=== PATIENT | female | born 1975 | race Caucasian/White ===

== ENCOUNTER → 2021-12-25 | Outpatient (REF) | payer OTHER ==
[2021-12-25 14:11] LABS: BASO # 0.1 10^3/uL (0.0-0.2); BASO % 0.7 % (0.0-1.0); EOS # 0.2 10^3/uL (0.0-0.5); EOS % 2.2 % (0.0-3.0); HEMATOCRIT 41.8 % (36.0-47.0); HEMOGLOBIN 14.5 g/dl (12.0-15.5); LYMPH # 2.2 10^3/uL (1.5-5.0); LYMPH % 21.6 % (24.0-44.0); MEAN CORPUSCULAR HEMOGLOBIN 31.4 pg (27.0-33.0); MEAN CORPUSCULAR HGB CONC 34.7 g/dl (32.0-36.5); MEAN CORPUSCULAR VOLUME 90.5 fl (80.0-96.0); MONO # 0.8 10^3/uL (0.0-0.8); MONO % 7.8 % (2.0-8.0); NEUTROPHILS # 6.8 10^3/uL (1.5-8.5); NEUTROPHILS % 67.4 % (36.0-66.0); PLATELET COUNT, AUTOMATED 192 10^3/uL (150-450); RED BLOOD COUNT 4.62 10^6/uL (4.00-5.40); WHITE BLOOD COUNT 10.1 10^3/uL (4.0-10.0)
[2021-12-25 17:13] LABS: ALBUMIN 3.9 GM/DL (3.2-5.2); ALT/SGPT 31 U/L (12-78); BILIRUBIN,TOTAL 0.5 MG/DL (0.2-1.0); BLOOD UREA NITROGEN 23 MG/DL (7-18); CALCIUM LEVEL 8.8 MG/DL (8.5-10.1); CARBON DIOXIDE LEVEL 26 MEQ/L (21-32); CHLORIDE LEVEL 104 MEQ/L (98-107); CHOLESTEROL LEVEL 184 MG/DL (<200); CHOLESTEROL RISK RATIO 2.628 (<5); CREATININE FOR GFR 0.92 MG/DL (0.55-1.30); FREE T4 1.05 NG/DL (0.76-1.46); GLOMERULAR FILTRATION RATE > 60.0 (>58); GLUCOSE, FASTING 72 MG/DL (70-100); HDL CHOLESTEROL 70 MG/DL (>40); LDL CHOLESTEROL 100 MG/DL (<100); NON-HDL-C 114 MG/DL; POTASSIUM SERUM 4.6 MEQ/L (3.5-5.1); SODIUM LEVEL 138 MEQ/L (136-145); TOTAL PROTEIN 6.9 GM/DL (6.4-8.2); TRIGLYCERIDES LEVEL 71 MG/DL (<150)
[2021-12-25 17:19] LABS: HIV 1&2 SCREEN CENTAUR NEGATIVE (NEGATIVE)
[2021-12-25 18:29] LABS: HEMOGLOBIN A1c 4.7 %
== END ==
LOC: M SFHCADAM 11:17
PROVIDERS: ATTEND Family Medicine
DX: Z00.00 Encounter for general adult medical examination without abnormal findings (principal)

== ENCOUNTER → 2022-05-09 | Outpatient (CLI) | payer OTHER ==
[~2022-05-09] MED LIST: NITR100C2 PO
== END ==
LOC: M LABSMTC 11:38
PROVIDERS: ATTEND Anesthesiology
DX: Z01.812 Encounter for preprocedural laboratory examination (principal); Z11.52 Encounter for screening for COVID-19

== ENCOUNTER → 2022-05-11 | Outpatient (REF) | payer OTHER ==
[~2022-05-11] MED LIST changes: +ADVITAB PO; +IMVE4SUP VA
== END ==
LOC: M SFHCADAM 13:09
PROVIDERS: ATTEND Family Medicine
DX: Z12.4 Encounter for screening for malignant neoplasm of cervix (principal)
CPT/HCPCS: G0123; G0463

== ENCOUNTER 2022-05-12 09:21 | Day surgery (SDC) | payer OTHER ==
[~2022-05-12] VITALS: Ht 154.9 cm; Wt 48.5 kg
[~2022-05-12 09:21] MED LIST changes: -ADVITAB PO; -IMVE4SUP VA; +NS 1,000 ML IV ONE
[2022-05-12] MEDS ORDERED: IMVE4SUP VA (10:07)
[2022-05-12] MEDS ORDERED: ADVITAB PO (10:07)
[2022-05-12] MEDS ORDERED: PHENYLephrine 500MCG 5ML (100MCG/ML) SYRINGE As Ordered ONE (10:56)
[2022-05-12] MEDS ORDERED: propofoL 500 MG/50 ML VIAL As Ordered ONE (10:56)
[2022-05-12] MEDS ORDERED: LIDOCAINE 2% 100MG/5ML SDV (FOR ANES.) As Ordered ONE (10:56)
[2022-05-12 11:40] VITALS: BP 109/63
== END 2022-05-12 11:49 | disposition home or self-care (01) ==
LOC: M OPP 09:21
PROVIDERS: ATTEND Surgery
DX: Z12.11 Encounter for screening for malignant neoplasm of colon (principal); D12.0 Benign neoplasm of cecum; Z79.1 Long term (current) use of non-steroidal anti-inflammatories (NSAID); Z79.2 Long term (current) use of antibiotics; Z79.818 Long term (current) use of other agents affecting estrogen receptors and estrogen levels; Z88.1 Allergy status to other antibiotic agents; Z88.2 Allergy status to sulfonamides; F17.200 Nicotine dependence, unspecified, uncomplicated
CPT/HCPCS: 45380; 45385; 88305; J2370